=== PATIENT | female | born 1955 | race Caucasian/White ===

== ENCOUNTER 2018-10-29 12:03 | Emergency (ER) | payer BC, OTHER ==
[2018-10-29] MEDS ORDERED: MORPHINE SULFATE 4 MG/ML SYRINGE IM STA (12:50)
[2018-10-29] MEDS ORDERED: HYDROmorphone 0.5 MG/0.5 ML SYRINGE IVP STA ×2 (13:24→15:17)
--- NOTE | 2018-10-29 13:42 | XR ---
EXAMINATION TYPE: XR Hip RT and AP Pelvis DATE OF EXAM: 10/29/2018 COMPARISON: NONE HISTORY: Pain into right hip. TECHNIQUE: A single AP view of the pelvis is obtained. Two views of the right hip are obtained. FINDINGS: There is acute minimally displaced fracture through the right superior and inferior pelvic rami. Mild to moderate axial joint space loss in both hips is present. Sacroiliac joints are [place]. Sided pelvic phleboliths are seen. Surgical changes lumbosacral junction noted. Two views of right hip show no additional acute fracture or dislocation. No focal lytic or sclerotic lesion seen in the proximal right femur. The overlying soft tissue is unremarkable. IMPRESSION: There are acute comminuted minimally displaced fracture through the right superior and inferior pelvic rami without pubic symphysis diastases. Correlate clinically for recent trauma. (Initially encountered closed type post traumatic fracture)
--- NOTE | 2018-10-29 13:44 | XR ---
EXAMINATION TYPE: XR lumbar spine 2 or 3V DATE OF EXAM: 10/29/2018 CLINICAL HISTORY: Back pain since Friday into right leg. TECHNIQUE: Frontal and lateral images of the lumbar spine are obtained. COMPARISON: Same day pelvic and right hip x-ray FINDINGS: There are 5 lumbar type vertebral bodies identified assuming bilateral accessory L1 ribs. Posterior trabecular rods and screws with artificial disc material L5-S1 level is present. There is m oderate disc space narrowing and endplate sclerosis L4-L5 level . Demineralization is seen which is n oticeable radiographic sensitivity. Sacroiliac joints are preserved. IMPRESSION: Postsurgical change lumbosacral junction. Degenerative change L4-L5 level.
[2018-10-29 14:04] VITALS: RESP 16
--- NOTE | 2018-10-29 15:19 | ED ---
Back Pain HPI - General Chief Complaint: Back Pain/Injury Stated Complaint: back pain Time Seen by Provider: 10/29/18 12:15 Source: patient, EMS Limitations: no limitations - History of Present Illness Initial Comments: 63-year-old female presenting today for chief complaint of back pain. Patient states she has had recent follow-up R week and half ago she states she did the splits. Patient states she has had low back pain rating on the right leg since. Patient states as been increasing since Friday. Patient denies any recent fall since the last her patient was evaluated for the last fall. Patient denies any injury to the head and neck. Patient denies urinary tension loss of bowel bladder control loss sensation of lower extremities or weakness. Patient denies any fever or IV drug use or history of cancer. Patient states there is pain when she ranges that the right hip, she denies the pain is sharp shooting rating down towards the knee. Patient denies any pain localized at the knee. Patient states she has been able to weight-bear and ambulate. Remaining review of systems negative upon arrival patient is a laboratory no signs of acute distress. Patient presented for pain management stating that her outpatient prescription of Tylenol No. 4 is not working. - Related Data Home Medications Medication Instructions Recorded Confirmed Pantoprazole Sodium 40 mg PO DAILY 08/24/13 10/29/18 DULoxetine HCL [Cymbalta] 60 mg PO BID 10/29/18 10/29/18 Furosemide [Lasix] 20 mg PO DAILY PRN 10/29/18 10/29/18 Gabapentin [Neurontin] 300 mg PO BID 10/29/18 10/29/18 Lisinopril 40 mg PO HS 10/29/18 10/29/18 hydrALAZINE HCL [Apresoline] 50 mg PO BID 10/29/18 10/29/18 Allergies Allergy/AdvReac Type Severity Reaction Status Date / Time azithromycin Allergy Swelling Verified 10/29/18 15:06 [From Zithromax Z-Tree] bupropion HCl Allergy Nausea Verified 10/29/18 15:06 [From Wellbutrin] latex Allergy Rash/Hives Verified 10/29/18 15:06 Review of Systems ROS Statement: Those systems with pertinent positive or pertinent negative responses have been documented in the HPI. ROS Other: All systems not noted in ROS Statement are negative. Past Medical History Past Medical History: GERD/Reflux, Hypertension Additional Past Medical History / Comment(s): DIVERTICULITIS. LUPUS History of Any Multi-Drug Resistant Organisms: None Reported Past Surgical History: Back Surgery, Orthopedic Surgery, Tubal Ligation Past Anesthesia/Blood Transfusion Reactions: Postoperative Nausea & Vomiting (PONV) Past Psychological History: Depression, PTSD Smoking Status: Former smoker Past Alcohol Use History: Occasional Past Drug Use History: None Reported - Past Family History Mother Family Medical History: Cancer Sister(s) Family Medical History: Cancer General Exam - General Exam Comments Initial Comments: General: The patient is awake and alert, in no distress, and does not appear acutely ill. Eye: Pupils are equal, round and reactive to light, extra-ocular movements are intact. No nystagmus. There is normal conjunctiva bilaterally. No signs of icterus. Ears, nose, mouth and throat: There are moist mucous membranes and no oral lesions. No cervical midline or paravertebral tenderness. Midline tenderness of lumbar spine. Neck: The neck is supple, there is no tenderness or JVD. Cardiovascular: There is a regular rate and rhythm. No murmur, rub or gallop is appreciated. Respiratory: Lungs are clear to auscultation, respirations are non-labored, breath sounds are equal. No wheezes, stridor, rales, or rhonchi. Gastrointestinal: Soft, non-distended, non-tender abdomen without masses or organomegaly noted. There is no rebound or guarding present. Musculoskeletal: Upon inspection of the lower extremities there is no internal rotation or external rotation or shortening of the right lower extremity. No hip swelling or bruising of the hips knees or ankles. +2 dorsalis pedis pulses bilaterally. Patient unable to extend at the legs bilaterally. Sensation intact of the lower extremities equal comparison bilaterally including the saddle region. Patient able to weight-bear. Neurological: A&O x 3. CN II-XII intact, There are no obvious motor or sensory deficits. Coordination appears grossly intact. Speech is normal. Skin: Skin is warm and dry and no rashes or lesions are noted. Psychiatric: Cooperative, appropriate mood & affect, normal judgment. Limitations: no limitations Course Vital Signs 10/29/18 10/29/18 10/29/18 12:10 14:03 15:31 Temperature 97.8 F 98.7 F Pulse Rate 68 66 Respiratory 18 16 16 Rate Blood Pressure 172/92 150/94 156/87 O2 Sat by Pulse 97 94 L Oximetry Medical Decision Making - Medical Decision Making 63yo female presenting to the ER for hx of fall 1.5 week ago. Patient complaining of low back pain that radiates to right hip. Patient neurovascularly intact. No acute osseous process of lumbar spine. No signs of cauda equina. Patient able to weight bear and ambulate. I discussed and reviewed imaging studies with Dr. Hudson. at this time he feels pateint is stable for discharge with outpatient orthopedic f/u. Continuation of tylenol #4. Return parameters were discussed patient verbalize understanding. She is happy with discharge, patient was offered admission for pain control. Patient refused stating she would like outpatient therapy. Discharged appearing well. Disposition Clinical Impression: Pelvic fracture, Right hip pain, Hx of fall, Low back pain Disposition: HOME SELF-CARE Condition: Good Instructions (If sedation given, give patient instructions): Pelvic Fracture (ED) Additional Instructions: Please use medication as discussed. Please follow-up with orthopedic surgery within next week. Please return to emergency room if the symptoms increase or worsen or for any other concerns, falls, inability to weight bear/ambulate. Is patient prescribed a controlled substance at d/c from ED?: No Referrals: Nadeem Jacobs DO [Primary Care Provider] - 1-2 days Rajesh Jaimes MD [STAFF PHYSICIAN] - 1-2 days Time of Disposition: 15:18
[2018-10-29 15:32] VITALS: BP 156/87; PULSE 66; TEMP 98.7
== END 2018-10-29 15:40 | disposition home or self-care (01) ==
LOC: EC 12:03
DX: S32.591A Other specified fracture of right pubis, initial encounter for closed fracture (principal); K21.9 Gastro-esophageal reflux disease without esophagitis; I10 Essential (primary) hypertension; F32.9 Major depressive disorder, single episode, unspecified; F43.10 Post-traumatic stress disorder, unspecified; Z87.891 Personal history of nicotine dependence; Z79.899 Other long term (current) drug therapy; Z88.1 Allergy status to other antibiotic agents; Z88.8 Allergy status to other drugs, medicaments and biological substances; Z91.040 Latex allergy status; Z53.29 Procedure and treatment not carried out because of patient's decision for other reasons; W19.XXXA Unspecified fall, initial encounter
CPT/HCPCS: 72100; 73502; 99284; 96374; 96376; J1170

== ENCOUNTER → 2019-01-27 | Outpatient (CLI) | payer OTHER ==
--- NOTE | 2019-02-01 13:36 | MM ---
Reason for exam: screening (asymptomatic). Last mammogram was performed 1 year and 3 months ago. History: Patient is postmenopausal. Family history of breast cancer in sister. Physical Findings: A clinical breast exam by your physician is recommended on an annual basis and results should be correlated with mammographic findings. MG Screening Mammo w CAD Bilateral CC and MLO view(s) were taken. Prior study comparison: November 05, 2017, mammogram, performed at [facility]. November 14, 2015, mammogram, performed at [facility]. July 16, 2010, mammogram, performed at [facility]. May 11, 2008, mammogram, performed at [facility]. April 13, 2008, mammogram, performed at [facility]. No significant changes when compared with prior studies. ASSESSMENT: Benign, BI-RAD 2 RECOMMENDATION: Routine screening mammogram of both breasts in 1 year.
== END | disposition home or self-care (01) ==
LOC: RADMAMWWP 12:46
PROVIDERS: ATTEND General Practice
DX: Z12.31 Encounter for screening mammogram for malignant neoplasm of breast (principal)
CPT/HCPCS: 77067